=== PATIENT | female | born 1985 | race Caucasian/White ===

== ENCOUNTER 2020-07-13 19:23 | Observation (INO) | payer OTHER, SELFPAY ==
[2020-07-13 19:26] VITALS: BP 116/80; PULSE 75; RESP 16; TEMP 37.1; O2SAT 98
--- NOTE | 2020-07-13 19:55 | CT_ITS ---
PROCEDURE: CT ABDOMEN PELVIS W CON CLINICAL INDICATION: Abd pain Right lower quadrant pain, severe right lower quadrant pain and tenderness COMPARISON: No exams were available for comparison TECHNIQUE: IV Contrast: 75ML Isovue 370 Oral Contrast None Axial images obtained with sagittal and coronal reformats. All CT scans at the facility use one or more dose reduction, viz: automated exposure control, ma/kV adjustment per patient size (including targeted exams where dose is matched to indication, i.e. head), or iterative reconstruction technique. FINDINGS: LOWER THORAX: There is minimal thickening of the pericardium ABDOMEN & PELVIS: The liver, spleen, adrenal glands, pancreas, have an unremarkable appearance. There is minimal scarring of the right kidney along the lower pole with a nonobstructing 2 mm calculus in this region and a questionable small stone in the lower pole on left at 2 mm. No intestinal obstruction or free air. The appendix is mildly thickened at approximately 8 mm. There is no stranding of the periappendiceal fat. No abscess or perforation. There is a mild amount of retained colonic feces. There is also mild thickening of the pyloric region of the stomach nonspecific. There are post hysterectomy changes. No acute bony findings. IMPRESSION: Mild thickening of the appendix. Suspect early/mild appendicitis. No abscess or perforation. Nonobstructing bilateral renal calculi. Mild thickening of the pyloric region of the stomach which could be due to nondistention or inflammatory changes/gastritis. Mild thickening of the pericardium. Dictated by: Bucky Kamara MD 07/14/2020 08:12 Bucky Kamara MD in [place] 07/14/2020 08:12
--- NOTE | 2020-07-13 20:01 | PC.NURSE ---
Pt finished po contrast at this time
[2020-07-13 20:15] LABS: Microscopic, Urine URINE MICROSCOPIC (MICROSCOPIC)
[2020-07-13 20:16] LABS: Basophils # 0.1 K/mm3 (0-0.2); Basophils % 1.1 % (0.1-2.0); Eosinophils # 0.3 K/mm3 (0.0-0.4); Eosinophils % 2.8 % (0.1-12.0); Hematocrit 43.1 % (37.0-47.0); Lymphocytes # 2.2 K/mm3 (0.7-4.5); Lymphocytes % 23.8 % (10-50); Mean Corpuscular HGB Conc 32.4 g/dL (31.8-35.4); Mean Corpuscular Hemoglobin 32.8 pg (27.0-31.2); Mean Corpuscular Volume 101.3 fl (81-99); Mean Platelet Volume 8.4 fl (7.4-10.4); Monocytes # 0.2 K/mm3 (0.1-1.0); Monocytes % 2.6 % (1.7-9.3); Neutrophils # 6.4 K/mm3 (1.8-7.8); Neutrophils % 69.6 % (37.0-80.0); Platelet Count 261 K/mm3 (142-424); Red Blood Count 4.26 M/mm3 (4.20-5.40); White Blood Count 9.1 K/mm3 (4.8-10.8)
--- NOTE | 2020-07-13 20:17 | HMH.EDNVD ---
ED Disposition Clinical Impression: Acute appendicitis Qualifiers: Acute appendicitis type: unspecified acute appendicitis type Qualified Code(s): K35.80 - Unspecified acute appendicitis Disposition: Admitted as Observation Condition on Discharge: Good Referrals: David Garcia [Primary Care Provider] - - Critical Care Critical Care Time: No Attestation: On 07/13/20, the high probability of a clinically significant, sudden or life threatening deterioration of the following system(s) required my full and direct attention, intervention and personal management. The time I documented below is in addition to time spent performing reported procedures but includes the following listed in this critical care notation. Medical Decision Making - Medical Records Medical records reviewed: Yes: I reviewed the patient's medical records. - Dmitry Inquiry Pt receiving controlled substance: No Vital Signs: 07/13/20 19:26 Temperature 98.8 F Temperature Source Oral Pulse Rate [Left Radial] 75 Respiratory Rate 16 Blood Pressure [Right Arm] 116/80 Blood Pressure Mean [Right Arm] 92 Blood Pressure Source [Right Arm] Automatic Cuff Blood Pressure Position [Right Arm] Supine 02 Sat by Pulse Oximetry 98 Oxygen Delivery Method Room Air - Lab Data Lab results reviewed: Yes: I reviewed the patient's lab results. Lab Results 07/13/20 19:40: Urine Color Yellow, Urine Appearance Clear, Urine pH 6.0, Ur Specific [place] 1.015, Urine Protein Negative, Urine Glucose (UA) Negative, Urine Ketones Negative, Urine Blood Negative, Urine Nitrate Negative, Urine Bilirubin Negative, Urine Urobilinogen 0.2, Ur Leukocyte Esterase Negative, Urine WBC 3-5, Ur Squamous Epith Cells 5-10, Urine Bacteria 1+ 07/13/20 20:00: WBC 9.1, RBC 4.26, Hgb 14.0, Hct 43.1, MCV 101.3 H, MCH 32.8 H, MCHC 32.4, RDW 13.0, Plt Count 261, MPV 8.4, Neut % (Auto) 69.6, Lymph % (Auto) 23.8, [place] % (Auto) 2.6, Eos % (Auto) 2.8, Baso % (Auto) 1.1, Neut # (Auto) 6.4, Lymph # (Auto) 2.2, [place] # (Auto) 0.2, Eos # (Auto) 0.3, Baso # (Auto) 0.1, ESR 28 H 07/13/20 20:00: Sodium 139, Potassium 3.5, Chloride 101, Carbon Dioxide 29, Anion Gap 12.5, BUN 11, Creatinine 1.10 H, Estimated Creat Clear 61, Estimated GFR 57 L, Est GFR ( Amer) 69, Glucose 119 H, Calcium 10.0, Total Bilirubin 0.7, AST 30, ALT 13, Alkaline Phosphatase 64, C-Reactive Protein 4.1 H, Total Protein 9.4 H, Albumin 5.6 H, Globulin 3.8 H, Albumin/Globulin Ratio 1.5, Amylase 85, Lipase 46, Procalcitonin 0.031 07/13/20 20:00: Lactate 0.9 07/13/20 20:00: SARS-CoV-2 IgG Ab (Rapid) Negative, SARS-CoV-2 IgM Ab (Rapid) Negative Result diagrams: 07/13/20 20:00 07/13/20 20:00 Orders (Tests/Meds): ED MEDICATIONS Generic Name Dose Route Start Last Admin Trade Name Freq PRN Reason Stop Dose Admin Sodium Chloride 1,000 mls @ 999 mls/hr 07/13/20 20:00 07/13/20 20:00 Sod Chlor 0.9% 1000ml Bag IV 07/13/20 21:00 999 mls/hr .Q1H1M LES Administration Discontinued Medications Generic Name Dose Route Start Last Admin Trade Name Freq PRN Reason Stop Dose Admin Diatrizoate Meglum/Diatrizoate Sod 30 ml 07/13/20 19:55 07/13/20 20:00 Diatrizoate Cindy 66% & Diatrizoate Na 10% 30ml Udc PO 07/13/20 19:56 30 ml ONCE ONE Administration Iopamidol 75 ml 07/13/20 22:04 07/13/20 22:05 Iopamidol-370 (76%);100ml Bottle IV 07/13/20 22:05 75 ml ONCE ONE Administration Ketorolac Tromethamine 30 mg 07/13/20 19:55 07/13/20 20:00 Ketorolac 30mg/Ml Vial IV 07/13/20 19:56 30 mg ONCE ONE Administration Morphine Sulfate 4 mg 07/13/20 23:08 Morphine 4mg/Ml Syringe IV 07/13/20 23:09 ONCE ONE Ondansetron HCl 4 mg 07/13/20 19:55 07/13/20 20:00 Ondansetron 4mg/2ml Vial IV 07/13/20 19:56 4 mg ONCE ONE Administration Sodium Chloride 10 ml 07/13/20 22:04 07/13/20 22:05 Sodium Chloride 0.9% 10ml Syr (Rad Only) IV 07/13/20 22:05 10 ml ONCE ONE Administration ORDERS C
[2020-07-13 20:20] LABS: Appearance,Urine CLEAR (Clear); Bilirubin,Urine Negative (Negative); Blood, Urine Negative (Negative); Color,Urine YELLOW (Yellow); Glucose,Urine (UA) Negative (Negative); Ketones,Urine Negative (Negative); Leukocyte Esterase,Urine Negative (Negative); Nitrate,Urine Negative (Negative); Protein,Urine Negative (Negative); Specific Gravity, Urine 1.015 (1.005-1.030); Urobilinogen,Urine 0.2 EU/dl (0.2)
[2020-07-13 20:20] LABS: Chloride 101 mmol/L (98-107); Sodium 139 mmol/L (136-145)
[2020-07-13 20:21] LABS: Potassium 3.5 mmoL/L (3.5-5.1)
[2020-07-13 20:23] LABS: Alanine Aminotransferase 13 U/L (12-78); Alkaline Phosphatase 64 U/L (38-126); Amylase 85 U/L (30-110); Anion Gap 12.5 mEq/L (5-15); Aspartate Amino Transferase 30 U/L (14-36); Bilirubin,Total 0.7 mg/dl (0.2-1.3); Blood Urea Nitrogen 11 mg/dl (7-17); Carbon Dioxide 29 mmol/L (22.0-30.0); Creatinine Clearance Estimated 61 mL/min (50-200); Estimated Glomerular Filt Rate 57 ml/min (>60); GFR (African American) 69 ML/MIN (>60); Glucose 119 mg/dl (74-100); Lactic Acid 0.9 mmol/L (0.7-2.1); Lipase 46 U/L (23-300)
[2020-07-13 20:24] LABS: Albumin Level 5.6 g/dl (3.5-5.0); Albumin/Globulin Ratio 1.5 (1.1-1.8); Globulin 3.8 g/dL (1.3-3.2); Total Protein,Serum 9.4 g/dl (6.3-8.2)
[2020-07-13 20:29] LABS: C-Reactive Protein 4.1 mg/L (0-4)
[2020-07-13 20:30] LABS: Bacteria,Urine 1+ /lpf
[2020-07-13 20:40] LABS: Procalcitonin 0.031 ng/mL (0.0-2.0)
[2020-07-13 20:50] LABS: Coronavirus 19 IgG Antibody Negative (Negative); Coronavirus 19 IgM Antibody Negative (Negative)
[2020-07-13 21:00] VITALS: BP 105/65; PULSE 56; O2SAT 98
[2020-07-13 21:08] LABS: Erythrocyte Sedimentation Rate 28 mm/hr (0-20)
--- NOTE | 2020-07-13 21:41 | PC.NURSE ---
Pt to CT at this time
--- NOTE | 2020-07-13 22:16 | PC.NURSE ---
return from ct
[2020-07-13 22:30] VITALS: BP 96/60; PULSE 55; O2SAT 97
--- NOTE | 2020-07-13 23:35 | PC.NURSE ---
Spoke with FélixPharmacist to Unasyn dosing. He stated 3gm Q6H IV.
[2020-07-14] VITALS (26 sets, daily range): BP systolic 80–108; BP diastolic 47–74; PULSE 46–68; RESP 12–18; TEMP 36.1–43; O2SAT 94–100; BMI 20.5
--- NOTE | 2020-07-14 02:13 | PC.NURSE ---
PT ARRIVED TO FLOOR VIA W/C FROM ED W/STAFF AT 0214
--- NOTE | 2020-07-14 06:56 | HMH.GSHP ---
HPI HPI: Patient is a pleasant 34-year-old female who resides in [place]. She states that on Monday evening, 07/12/2020, she developed sharp stabbing right lower quadrant pain. This persisted and progressed. She states that it was worse with walking. She thought it may be gas pain initially but it did not pass. Due to its persistence she presented to the emergency department yesterday evening where she was seen and evaluated. She was found to have normal white blood cell count. She was noted to be tender in the right lower quadrant. She underwent CT scan with IV and oral contrast and preliminary [facility] report is somewhat equivocal but possibly consistent with early appendicitis. She was therefore admitted for inpatient management and reevaluation. Of note, the patient has previously had laparoscopic hysterectomy. [facility] History I have reviewed the patient's past medical history: Yes Medical History: Denies:: Diabetes Mellitus Type 1, Diabetes Mellitus Type 2 *Have you ever received a pneumonia vaccine?: No *Have you received a flu vaccine this season?: No Other Surgeries: Yes: Cholecystectomy, Hysterectomy-Total - *Social History Smoking Status: Current every day smoker # Packs/Day (cigarettes): 10 Alcohol Intake: never *Occupational Status:: other Housing: house *Travel in the last 8 weeks: None Family Hx:: Cancer, Stroke Review of Systems - Review of Systems Review of systems:: pertinent systems reviewed and negative unless documented below - *Neurologic Denies frequent falls, Denies seizure-like activity Meds Home Medications Medication Instructions Recorded Confirmed Type estradioL [Estradiol (Once Weekly)] 1 each TD WEEKLY 07/13/20 07/14/20 History Allergies Allergy/AdvReac Type Severity Reaction Status Date / Time No Known Allergies Allergy Verified 07/14/20 02:42 Exam Vital signs and Labs for Last 24 Hours: Temp Pulse Resp BP Pulse Ox 97.4 F L 56 L 18 91/54 L 96 07/14/20 04:00 07/14/20 04:00 07/14/20 04:15 07/14/20 04:00 07/14/20 04:00 Laboratory Results - last 24 hr 07/13/20 19:40: Urine Color Yellow, Urine Appearance Clear, Urine pH 6.0, Ur Specific [place] 1.015, Urine Protein Negative, Urine Glucose (UA) Negative, Urine Ketones Negative, Urine Blood Negative, Urine Nitrate Negative, Urine Bilirubin Negative, Urine Urobilinogen 0.2, Ur Leukocyte Esterase Negative, Urine WBC 3-5, Ur Squamous Epith Cells 5-10, Urine Bacteria 1+ 07/13/20 20:00: WBC 9.1, RBC 4.26, Hgb 14.0, Hct 43.1, MCV 101.3 H, MCH 32.8 H, MCHC 32.4, RDW 13.0, Plt Count 261, MPV 8.4, Neut % (Auto) 69.6, Lymph % (Auto) 23.8, [place] % (Auto) 2.6, Eos % (Auto) 2.8, Baso % (Auto) 1.1, Neut # (Auto) 6.4, Lymph # (Auto) 2.2, [place] # (Auto) 0.2, Eos # (Auto) 0.3, Baso # (Auto) 0.1, ESR 28 H 07/13/20 20:00: Sodium 139, Potassium 3.5, Chloride 101, Carbon Dioxide 29, Anion Gap 12.5, BUN 11, Creatinine 1.10 H, Estimated Creat Clear 61, Estimated GFR 57 L, Est GFR ( Amer) 69, Glucose 119 H, Calcium 10.0, Total Bilirubin 0.7, AST 30, ALT 13, Alkaline Phosphatase 64, C-Reactive Protein 4.1 H, Total Protein 9.4 H, Albumin 5.6 H, Globulin 3.8 H, Albumin/Globulin Ratio 1.5, Amylase 85, Lipase 46, Procalcitonin 0.031 07/13/20 20:00: Lactate 0.9 07/13/20 20:00: SARS-CoV-2 IgG Ab (Rapid) Negative, SARS-CoV-2 IgM Ab (Rapid) Negative I & O for Last 24 hours: Intake & Output 07/11/20 07/12/20 07/13/20 07/14/20 11:59 11:59 11:59 11:59 Intake Total 2099 Balance 2099 Weight 120 lb 5 oz Microbiology Reports for the Last 24 Hours: Microbiology 07/13/20 21:24 Nasopharyngeal Coronavirus COVID-19 PCR - Final - *Routine HEENT Exam Head: Present: normocephalic Eye: Present: EOMI, PERRL ENT: Present: mucous membranes moist - *Routine Neck Exam Present: supple. Absent: lymphadenopathy - *Routine Respiratory Exam Present: CTA bilaterally - *Routine Cardiovascular Exam Present: RRR - *R
--- NOTE | 2020-07-14 07:06 | PC.NURSE ---
pt was admitted with appendicitis. surgery to see this am. pt is npo at this time. iv patent and infusing per order. pt did take a bath. one episode of incontinence of loose stool. pain reported in abd and prn med given. pt did ambulate halls after arrival to floor. call light in reach. will continue to monitor.
[2020-07-14 07:27] LABS: Chloride 111 mmol/L (98-107); Sodium 139 mmol/L (136-145)
[2020-07-14 07:30] LABS: Blood Urea Nitrogen 10 mg/dl (7-17); Creatinine Clearance Estimated 77 mL/min (50-200); Estimated Glomerular Filt Rate 72 ml/min (>60); GFR (African American) 87 ML/MIN (>60)
[2020-07-14 07:31] LABS: Carbon Dioxide 26 mmol/L (22.0-30.0); Glucose 78 mg/dl (74-100)
[2020-07-14 07:34] LABS: Basophils # 0.1 K/mm3 (0-0.2); Basophils % 1.1 % (0.1-2.0); Eosinophils # 0.2 K/mm3 (0.0-0.4); Eosinophils % 3.6 % (0.1-12.0); Lymphocytes # 1.6 K/mm3 (0.7-4.5); Lymphocytes % 30.5 % (10-50); Mean Corpuscular HGB Conc 32.2 g/dL (31.8-35.4); Mean Corpuscular Hemoglobin 33.4 pg (27.0-31.2); Mean Corpuscular Volume 103.6 fl (81-99); Mean Platelet Volume 8.9 fl (7.4-10.4); Monocytes # 0.2 K/mm3 (0.1-1.0); Monocytes % 3.9 % (1.7-9.3); Neutrophils # 3.3 K/mm3 (1.8-7.8); Neutrophils % 60.9 % (37.0-80.0); Platelet Count 185 K/mm3 (142-424); Red Blood Count 3.19 M/mm3 (4.20-5.40); White Blood Count 5.4 K/mm3 (4.8-10.8)
[2020-07-14 07:46] LABS: Hemoglobin 10.6 g/dL (12.2-16.2)
[2020-07-14 07:48] LABS: Calcium 7.9 mg/dl (8.4-10.2)
--- NOTE | 2020-07-14 08:16 | P.CONPHA_ITS ---
[facility] Pharmacy VTE Monitoring - Patient Demographics Admission date: 07/14/20 Report Date: 07/14/20 Time: 08:16 Allergies/Adverse Reactions: Patient Allergies No Known Allergies Allergy (Verified 07/14/20 02:42) Height: 1.63 m Weight: 54.573 kg Patient Problems: Current Active Problems Acute appendicitis (Acute) - VTE Risk Labs: VTE Related Lab Results Hgb 10.6 g/dL (12.2-16.2) L D 07/14/20 07:04 Hct 33.0 % (37.0-47.0) L 07/14/20 07:04 Plt Count 185 K/mm3 (142-424) D 07/14/20 07:04 BUN 10 mg/dl (7-17) 07/14/20 07:04 Creatinine 0.90 mg/dl (0.52-1.04) 07/14/20 07:04 Estimated Creat Clear 77 mL/min (50-200) 07/14/20 07:04 Was VTE Risk Assessment Performed: Yes VTE Score: 1 VTE Risk Level: Very Low Risk Clinical Trial Participant: No - Prophylaxis VTE Prophylaxis Ordered?: Yes Types of VTE Prophylaxis: TEDS Knee High
--- NOTE | 2020-07-14 09:36 | PC.NURSE ---
Pt off floor for procedure
--- NOTE | 2020-07-14 11:00 | HMH.OPNOTE ---
Date of procedure: 07/14/20 Pre-op Diagnosis:: Acute appendicitis Post-op Diagnosis:: Same Procedure performed:: Laparoscopic appendectomy Surgeon:: Sj Rivera MD SELF [employer] OPERATOR:: Micah Contreras Anesthesia: HORTENSIA Estimated blood loss (mL): 15 Clinical Note:: Patient is a pleasant 34-year-old female who resides in [place]. She states that on Monday evening, 07/12/2020, she developed sharp stabbing right lower quadrant pain. This persisted and progressed. She states that it was worse with walking. She thought it may be gas pain initially but it did not pass. Due to its persistence she presented to the emergency department yesterday evening where she was seen and evaluated. She was found to have normal white blood cell count. She was noted to be tender in the right lower quadrant. She underwent CT scan with IV and oral contrast and preliminary [facility] report is somewhat equivocal but possibly consistent with early appendicitis. She was therefore admitted for inpatient management and reevaluation. Of note, the patient has previously had laparoscopic hysterectomy. Operative findings:: She had some reactive cloudy fluid in the pelvis. She had an edematous somewhat indurated appendix but it was not necrotic, nonsuppurative, nonperforated. Operative note:: Patient was taken the operating room. She was given preoperative intravenous antibiotics. General anesthesia was induced. Gold catheter was placed. Abdomen was prepped and draped in the standard surgical fashion. Infraumbilical incision was made in her previous laparoscopy scar. While performing abdominal wall lift Veress needle was inserted. CO2 pneumoperitoneum was achieved to 15 mmHg. 12 mm optical trocar was inserted at the umbilicus. Intraperitoneal contents were visualized. 5 mm trocar was inserted under laparoscopic visualization in the suprapubic location. Additional 5 mm trocar was inserted in the right upper abdomen. Cecum was retracted superiorly. Appendix was identified at the tip of the cecum and it was found to be indurated and edematous consistent with early developing appendicitis. There was some cloudy reactive fluid in the pelvis. Appendix was grasped with an endoscopic Myriam. Mesoappendix was carefully divided with DIMA ultrasonic harmonic jairo with care taken to coagulate the appendiceal artery and the process. Dissection was carried down to the appendiceal base. The appendix was divided at its base with an endoscopic PREET linear cutting stapling device. Appendix was placed within an Endo Catch retrieval device and removed from the peritoneal cavity via the umbilical trocar site. Reactive fluid in the pelvis was suctioned free. Limited irrigation was performed. Trochars were removed as CO2 pneumoperitoneum was evacuated. Fascia at the umbilicus was closed with a couple of 0 Vicryl sutures. Local anesthetic was infiltrated in all trocar sites. Skin incisions were closed with 4-0 Monocryl in a subcuticular fashion. Steri-Strips and dressings were applied. Condition: stable Disposition: PACU Specimens:: Appendix Complications:: None immediately apparent
--- NOTE | 2020-07-14 11:07 | P.PN_ITS ---
[facility] Anesthesia Checklist - Patient Identification Patient Identification: Arm Band - Structural Data Admitted From: Inpatient Planned Operative Procedure/s: laparoscopic appendectomy Consent for Planned Operative Procedure(s) Verified: Yes Verified Documents: Surgical Consent, History and Physical - NPO Status Verified Time NPO: 00:00 - Additional verifications Anesthesia Reactions: No - Airway Assessment C-Spine Mobility Assessed: Yes (mp2) TMJ Mobility Assessed: Yes Dentition: Good Dentition - Neurological Assessment Level of Consciousness: Awake, Alert - Anesthesia Plan Anesthesia Risk discussed: Yes Anesthesia Plan: Verified ASA Class: II Anesthesia Type: General [facility] History I have reviewed the patient's past medical history: Yes Medical History: Denies:: Diabetes Mellitus Type 1, Diabetes Mellitus Type 2 *Have you ever received a pneumonia vaccine?: No *Have you received a flu vaccine this season?: No Anesthesia experience/problems:: nac Other Surgeries: Yes: Cholecystectomy, Hysterectomy-Total - *Social History Smoking Status: Current every day smoker # Packs/Day (cigarettes): 10 Alcohol Intake: never Substance Use Type: denies use *Occupational Status:: other Housing: house *Travel in the last 8 weeks: None Family Hx:: Cancer, Stroke
--- NOTE | 2020-07-14 11:08 | P.PN_ITS ---
[facility] Anesthesia Record Part I Intake, IV Amount: 1,000 Estimated blood loss (mL): 10 Urine output (mL): 100 Blood Pressure: 81/47 SaO2: 98 Pulse Rate: 46 Respiratory Rate: 16 Temperature: 98.1 F Patient is:: Drowsy, Stable Stable to PACU at:: 11:00
[2020-07-14 11:09] LABS: Microscopic,Cath URINE MICROSCOPIC (MICROSCOPIC)
[2020-07-14 11:13] LABS: Appearance,Urine/Cath CLEAR (Clear); Bilirubin,Cath Negative (Negative); Blood, Urine/Cath Negative (Negative); Color,Urine/Cath YELLOW (Yellow); Glucose,Urine/Cath (UA) Negative (Negative); Ketones,Urine/Cath Negative (Negative); Leukocyte Esterase,Cath Negative (Negative); Nitrate,Cath Negative (Negative); Protein,Urine/Cath Negative (Negative); Urobilinogen,Cath 0.2 EU/dl (0.2)
--- NOTE | 2020-07-14 11:50 | PC.NURSE ---
Pt is back from surgery at this time.
[2020-07-14 11:56] LABS: RBC,Urine/Cath Occasional # /hpf (0-3); Squamous Epithelial Ur./Cath Occasional #/hpf (0-5); WBC,Urine/Cath Occasional #/hpf (0-3)
--- NOTE | 2020-07-14 13:59 | HMH.GSPN ---
Subjective Patient reports: feels better Narrative: Patient feeling well after surgery. Progress Note: A&P Assessment and Plan for All Diagnoses:: Plan for discharge home Exam Vital signs and Labs for Last 24 Hours: Temp Pulse Resp BP Pulse Ox 97.3 F L 68 18 106/70 L 97 07/14/20 13:30 07/14/20 13:30 07/14/20 13:30 07/14/20 13:30 07/14/20 13:30 Laboratory Results - last 24 hr 07/13/20 19:40: Urine Color Yellow, Urine Appearance Clear, Urine pH 6.0, Ur Specific [place] 1.015, Urine Protein Negative, Urine Glucose (UA) Negative, Urine Ketones Negative, Urine Blood Negative, Urine Nitrate Negative, Urine Bilirubin Negative, Urine Urobilinogen 0.2, Ur Leukocyte Esterase Negative, Urine WBC 3-5, Ur Squamous Epith Cells 5-10, Urine Bacteria 1+ 07/13/20 20:00: WBC 9.1, RBC 4.26, Hgb 14.0, Hct 43.1, MCV 101.3 H, MCH 32.8 H, MCHC 32.4, RDW 13.0, Plt Count 261, MPV 8.4, Neut % (Auto) 69.6, Lymph % (Auto) 23.8, [place] % (Auto) 2.6, Eos % (Auto) 2.8, Baso % (Auto) 1.1, Neut # (Auto) 6.4, Lymph # (Auto) 2.2, [place] # (Auto) 0.2, Eos # (Auto) 0.3, Baso # (Auto) 0.1, ESR 28 H 07/13/20 20:00: Sodium 139, Potassium 3.5, Chloride 101, Carbon Dioxide 29, Anion Gap 12.5, BUN 11, Creatinine 1.10 H, Estimated Creat Clear 61, Estimated GFR 57 L, Est GFR ( Amer) 69, Glucose 119 H, Calcium 10.0, Total Bilirubin 0.7, AST 30, ALT 13, Alkaline Phosphatase 64, C-Reactive Protein 4.1 H, Total Protein 9.4 H, Albumin 5.6 H, Globulin 3.8 H, Albumin/Globulin Ratio 1.5, Amylase 85, Lipase 46, Procalcitonin 0.031 07/13/20 20:00: Lactate 0.9 07/13/20 20:00: SARS-CoV-2 IgG Ab (Rapid) Negative, SARS-CoV-2 IgM Ab (Rapid) Negative 07/14/20 07:04: WBC 5.4 D, RBC 3.19 L D, Hgb 10.6 L D, Hct 33.0 L, MCV 103.6 H, MCH 33.4 H, MCHC 32.2, RDW 13.0, Plt Count 185 D, MPV 8.9, Neut % (Auto) 60.9, Lymph % (Auto) 30.5, [place] % (Auto) 3.9, Eos % (Auto) 3.6, Baso % (Auto) 1.1, Neut # (Auto) 3.3, Lymph # (Auto) 1.6, [place] # (Auto) 0.2, Eos # (Auto) 0.2, Baso # (Auto) 0.1 07/14/20 07:04: Sodium 139, Potassium 4.0, Chloride 111 H, Carbon Dioxide 26, Anion Gap 6.0, BUN 10, Creatinine 0.90, Estimated Creat Clear 77, Estimated GFR 72, Est GFR ( Amer) 87 D, Glucose 78 D, Calcium 7.9 L D 07/14/20 10:15: Urine Color Yellow, Urine Appearance Clear, Urine pH 6.0, Ur Specific [place] 1.020, Urine Protein Negative, Urine Glucose (UA) Negative, Urine Ketones Negative, Urine Blood Negative, Urine Nitrate Negative, Urine Bilirubin Negative, Urine Urobilinogen 0.2, Ur Leukocyte Esterase Negative, Urine RBC Occasional, Urine WBC Occasional, Ur Squamous Epith Cells Occasional I & O for Last 24 hours: Intake & Output 07/12/20 07/13/20 07/14/20 07/15/20 11:59 11:59 11:59 11:59 Intake Total 3100 / 3100 Output Total 0 / 0 Balance 3100 / 3100 Weight 120 lb 5 oz Microbiology Reports for the Last 24 Hours: Microbiology 07/13/20 21:24 Nasopharyngeal Coronavirus COVID-19 PCR - Final - *Routine Abdominal Exam Present: soft
--- NOTE | 2020-07-14 13:59 | HMH.DCSUM ---
General - General Admission date:: 07/14/20 Discharge date: 07/15/20 HPI HPI: Patient is a pleasant 34-year-old female who resides in [place]. She states that on Monday evening, 07/12/2020, she developed sharp stabbing right lower quadrant pain. This persisted and progressed. She states that it was worse with walking. She thought it may be gas pain initially but it did not pass. Due to its persistence she presented to the emergency department yesterday evening where she was seen and evaluated. She was found to have normal white blood cell count. She was noted to be tender in the right lower quadrant. She underwent CT scan with IV and oral contrast and preliminary [facility] report is somewhat equivocal but possibly consistent with early appendicitis. She was therefore admitted for inpatient management and reevaluation. Of note, the patient has previously had laparoscopic hysterectomy. Hospital Course Hospital Course: She was admitted for inpatient management. She was started on intravenous Unasyn. She continued to have pain requiring Dilaudid. Her CT scan findings were discussed with the radiologist and it was felt that she did have findings consistent with uncomplicated appendicitis. She was taken to the operating room and underwent laparoscopic appendectomy. She was found to have an acute indurated edematous but nonsuppurative nonnecrotic nonperforated appendicitis. Please see operative dictation for complete details. She was admitted for postoperative management. She felt well after surgery and was anxious to go home. Arrangements were made for discharge later in the afternoon after her surgery. However, there were issues with her pharmacy of record obtaining her pain medication prescription. Therefore, patient elected to remain an inpatient for another night. She did request that evening going outside to smoke. She therefore was ordered a nicotine patch. She had been on a full liquid diet however her brought her some outside regular fast food which she tolerated initially without difficulty. She did develop some nausea later that evening but no vomiting requiring antiemetic with good resolution. Following morning she was feeling well and ready for discharge. Objective Vital signs: Temp Pulse Resp BP Pulse Ox 97.3 F L 68 18 106/70 L 97 07/14/20 13:30 07/14/20 13:30 07/14/20 13:30 07/14/20 13:30 07/14/20 13:30 Results Labs on day of discharge: Labs from last 24 hours 02/07/14/20 07/14/20 10:15 07:04 07:04 WBC 5.4 D RBC 3.19 L D Hgb 10.6 L D Hct 33.0 L MCV 103.6 H MCH 33.4 H MCHC 32.2 RDW 13.0 Plt Count 185 D MPV 8.9 Neut % (Auto) 60.9 Lymph % (Auto) 30.5 [place] % (Auto) 3.9 Eos % (Auto) 3.6 Baso % (Auto) 1.1 Neut # (Auto) 3.3 Lymph # (Auto) 1.6 [place] # (Auto) 0.2 Eos # (Auto) 0.2 Baso # (Auto) 0.1 ESR Sodium 139 Potassium 4.0 Chloride 111 H Carbon Dioxide 26 Anion Gap 6.0 BUN 10 Creatinine 0.90 Estimated Creat Clear 77 Estimated GFR 72 Est GFR ( Amer) 87 D Glucose 78 D Lactate Calcium 7.9 L D Total Bilirubin AST ALT Alkaline Phosphatase C-Reactive Protein Total Protein Albumin Globulin Albumin/Globulin Ratio Amylase Lipase Procalcitonin Urine Color Yellow Urine Appearance Clear Urine pH 6.0 Ur Specific [place] 1.020 Urine Protein Negative Urine Glucose (UA) Negative Urine Ketones Negative Urine Blood Negative Urine Nitrate Negative Urine Bilirubin Negative Urine Urobilinogen 0.2 Ur Leukocyte Esterase Negative Urine RBC Occasional Urine WBC Occasional Ur Squamous Epith Cells Occasional Urine Bacteria SARS-CoV-2 IgG Ab (Rapid) SARS-CoV-2 IgM Ab (Rapid) 07/13/20 07/13/20 07/13/20 20:00 20:00 20:00 WBC RBC Hgb Hct MCV
--- NOTE | 2020-07-14 18:34 | PC.NURSE ---
Pt alert and oriented x4. Treated with prn pain meds q4hrs with pt reporting relief on reassessment. 3 lap site. Distal site with moderate amouth of sanguineous drainage. Other sites are clean. Pt has ambulated in her room. Tolerating diet well. Will continue to monitor.
[2020-07-15 05:00] VITALS: BMI 20.5
--- NOTE | 2020-07-15 08:22 | HMH.ANESII ---
[facility] Anesthesia Record Part II Discharge Time: 11:30 Destination: Medical Surgical Department PACU nurse assessment reviewed?: Yes Patient Condition:: Good Anesthesia Complications:: None Swallowing reflex intact?: Yes Cyanosis?: No Blood Pressure: 96/68 Pulse Rate: 68 Temperature: 97.8 F Mental Status: Alert & Oriented Pain level:: 0 Nausea and/or vomitting:: None Intake, IV Amount: 0
[2020-07-15 08:23] VITALS: BP 96/68; PULSE 68; TEMP 36.6
[2020-07-15 12:20] VITALS: BP 106/62; PULSE 56; RESP 18; TEMP 36.9; O2SAT 97
== END 2020-07-15 12:39 | disposition home or self-care (01) ==
LOC: ER 23:28 → 2ND 07-14 01:47
PROVIDERS: Emergency Medicine; Admitting Provider Surgery; Emergency Provider Emergency Medicine; PCP Pediatrics; Visit Provider Surgery
PROC: 0DTJ4ZZ Resection of Appendix, Percutaneous Endoscopic Approach (ICD-10-PCS; CPT 44970; principal; 2020-07-14 09:00)
DX: K35.80 Unspecified acute appendicitis (principal)
CPT/HCPCS: 44970; 36415; 74177; 80048; 80053; 81001; 82150; 83605; 83690; 84145; 85025; 85651; 86140; 86328; 87040; 96365; 96366; 96367; 96375; 99285; G0378; J2405; J2710; Q9967; U0003

== ENCOUNTER 2020-07-23 11:12 | Outpatient (CLI) | payer OTHER, SELFPAY ==
[2020-07-23 11:26] VITALS: RESP 18
== END 2020-07-23 11:52 | disposition home or self-care (01) ==
LOC: INF 11:13
PROVIDERS: PCP Pediatrics; Visit Provider Surgery
DX: G89.18 Other acute postprocedural pain (principal); K35.80 Unspecified acute appendicitis
CPT/HCPCS: 96372